=== PATIENT | male | born 1970 | race Caucasian/White ===

== ENCOUNTER 2022-02-02 13:23 | Outpatient (REF) | payer OTHER, SELFPAY ==
--- NOTE | 2022-02-02 13:39 | ECG_ITS ---
Test Reason : F31.63 Blood Pressure : / mmHG Vent. Rate : 067 BPM Atrial Rate : 067 BPM P-R Int : 158 ms QRS Dur : 106 ms QT Int : 400 ms P-R-T Axes : 063 -13 009 degrees QTc Int : 422 ms Normal sinus rhythm RSR' or QR pattern in V1 suggests right ventricular conduction delay Low voltage QRS Borderline ECG When compared with ECG of 07-OCT-2014 13:52, No significant change was found Referred By: Aaron Chen Electronically Signed By:MANJEET BEST MD
[2022-02-02 14:03] LABS: MANUAL DIFF FLAG NO
[2022-02-02 14:05] LABS: Basophils Absolute Auto 0.1 X10*3/uL (0.0-0.2); Basophils Percent Auto 0.6 % (0-2); Eosinophils Absolute Auto 0.1 X10*3/uL (0.0-0.4); Eosinophils Percent Auto 1.6 % (0-4); Hematocrit 41.2 % (42.0-52.0); Hemoglobin 14.4 g/dl (14.0-18.0); Imm Gran Abs Auto 0.05 X10*3/uL (0.00-0.03); Imm Gran Pct Auto 0.6 % (0.0-0.4); Lymphocytes Absolute Auto 1.9 X10*3/uL (1.2-4.9); Lymphocytes Percent Auto 23.2 % (20-40); Mean Corpuscular Volume 82.9 fL (80.0-98.0); Mean Platelet Volume 10.6 fL (9.4-12.4); Monocytes Absolute Auto 0.6 X10*3/uL (0.1-1.2); Monocytes Percent Auto 7.9 % (2-11); Neutrophils Absolute Auto 5.4 x10*3/uL (2.0-8.3); Neutrophils Percent Auto 66.1 % (45-73); Platelet Count 227 X10*3/uL (160-400); Red Blood Count 4.97 X10*6/uL (4.60-5.80); Red Cell Distribution Width 12.7 % (11.0-16.0); White Blood Count 8.1 X10*3/uL (4.8-10.8)
[2022-02-02 14:35] LABS: Alanine Aminotransferase 18 U/L (0-40); Albumin Level 4.4 g/dL (3.5-5.0); Alkaline Phosphatase 64 U/L (39-117); Anion Gap 16 (12-20); Aspartate Amino Transferase 15 U/L (5-37); Bilirubin Total 0.5 mg/dL (0.0-1.0); Blood Urea Nitrogen 19 mg/dL (9-16); Calcium 9.6 mg/dL (8.4-10.2); Carbon Dioxide 24 mmol/L (22-29); Chloride 103 mmol/L (96-108); Estimated Glomerular Filt Rate > 60; Glucose Random 224 mg/dL (60-115); Potassium 4.1 mmol/L (3.3-5.1); Sodium 139 mmol/L (135-145); Total Protein 7.2 g/dL (6.5-8.0)
[2022-02-02 14:49] LABS: Estimated Average Glucose 166 mg/dL; Hemoglobin A1c % 7.4 %
[2022-02-02 15:26] LABS: Vitamin B12 549 pg/mL (200-900)
== END 2022-02-02 13:24 | disposition home or self-care (01) ==
LOC: HO.LAB 13:23
PROVIDERS: PCP Family Medicine; Visit Provider Psychiatry & Neurology Psychiatry
DX: F31.63 Bipolar disorder, current episode mixed, severe, without psychotic features (principal); I10 Essential (primary) hypertension; E11.9 Type 2 diabetes mellitus without complications
CPT/HCPCS: 36415; 80053; 82607; 82746; 83036; 84443; 85025; 93005; 99202

== ENCOUNTER 2022-02-16 05:58 | Day surgery (SDC) | payer OTHER, SELFPAY ==
[2022-02-16 06:42] LABS: COVID-19 Test Negative (Negative); IDNOW Serial# 9DB6401D
[2022-02-16 06:51] VITALS: BP 143/73; PULSE 69; RESP 20; TEMP 36.8; O2SAT 96; BMI 44.4
--- NOTE | 2022-02-16 07:35 | HO.ANESPROP2 ---
[facility] Active Problems Active Problems: All Active Problems (Updated 02/04/22 @ 21:42 by Aaron Chen MD) Bipolar disorder with severe depression (Acute) Hypertension (Acute) Diabetes type 2, uncontrolled (Acute) Bipolar affective, mixed, severe (Acute) Past Medical History Medical History Bipolar affective, mixed, severe Hypertension Functional capacity: independent ambulation Surgical History History of Problems with Anesthesia: No Social History Social History Advance Directives: No Advance Directives Information Provided: Yes Meds Allergies Allergy/AdvReac Type Severity Reaction Status Date / Time amoxicillin [AMOXICILLIN] Allergy Unknown RASH Unverified 11/26/19 18:03 clindamycin [CLINDAMYCIN] Allergy Unknown VIOLENT Unverified 11/26/19 18:03 HEARTBURN Exam Exam Date and Time: February 16, 2022 0735 Height,Weight and Vital Signs: Height 5 ft 8 in Weight 132.449 kg Last Vital Signs Temp 98.3 F 02/16/22 06:51 Pulse 69 02/16/22 06:51 Resp 20 02/16/22 06:51 BP 143/73 H 02/16/22 06:51 Pulse Ox 96 02/16/22 06:51 O2 Del Method 02/16/22 06:51 Pertinent Lab Results Pertinent Lab Results: Laboratory Tests 02/16/22 06:13 COVID-19 (GENESIS) Negative COVID-19 Clin Com See Note Airway Mallampati Class: III TM Dist: >3cm Neck ROM: Full Heart: RRR Lungs: CTA Assessment and Plan Final Anesthetic Review History of Problems with Anesthesia: No ASA Class: III Final Preanesthetic Review: Meds/Allgs Chart Reviewed, Consent Obtained/Reviewed and Anes Risks/Benef Reviewed Patient Risk: Intermediate Procedure Risk: Low Anesthetic Plan Anesthetic Plan: GA Disposition: Standard PACU
--- NOTE | 2022-02-16 08:26 | MHC.SHP ---
Pre-Procedural Eval Section A Date of Service: 02/16/22 The patient is an INPATIENT: No Changes since office visit: Yes Patient answered all questions; No Cold of Flu in the past 2 weeks, No New Medical Problems and No Changes in Medication The History & Physical has been completed within 30 days and I have reviewed it.: Yes Section B Chief Complaint: Major depressive disorder, recurrent, severe with Allergies: Allergies Allergy/AdvReac Type Severity Reaction Status Date / Time amoxicillin [AMOXICILLIN] Allergy Unknown RASH Unverified 11/26/19 18:03 clindamycin [CLINDAMYCIN] Allergy Unknown VIOLENT Unverified 11/26/19 18:03 HEARTBURN Plan I have reviewed the history and physical and performed a pertinent physical examination on my patient. No changes have occurred unless specified.
[2022-02-16 08:29] VITALS: BP 115/75; PULSE 82; RESP 12; TEMP 36.9; O2SAT 95
[2022-02-16 08:34] VITALS: BP 155/93; PULSE 90; RESP 20; O2SAT 95
[2022-02-16 08:39] VITALS: PULSE 100; RESP 20
[2022-02-16 08:54] VITALS: PULSE 102; RESP 20
--- NOTE | 2022-02-16 08:56 | HO.POSTANES ---
Post Anesthesia Evaluation Post Anesthesia Evaluation Vital Signs: Vital Signs Temp Pulse Resp BP Pulse Ox O2 Del Method O2 Flow Rate 02/16/22 08:39 100 20 02/16/22 08:34 90 20 155/93 H 95 Nasal Cannula with ETCO2 2 02/16/22 08:29 98.4 F 82 12 115/75 95 Nasal Cannula with ETCO2 2 02/16/22 06:51 98.3 F 69 20 143/73 H 96 Room Air Anesthesia: General LMA Mental Status: Awake Pain Control: Satisfactory Nausea/Vomiting: None Hydration: Adequate Anesthesia-Related Issues: No Anes. Related Issues
[2022-02-16] MEDS: LORazepam 1 MG TABLET PO (09:05)
[2022-02-16 09:08] VITALS: BP 142/80; PULSE 90; RESP 20; O2SAT 95
--- NOTE | 2022-02-16 20:08 | HO.ECTPROC ---
ECT Procedure Note Diagnosis/Treatment Date of Service: 02/16/22 Diagnosis: Major Depressive Disorder Current Treatment Number: 1 Treatment: Series Interval Clinical Notes: pt depressed anxious irritable informed consent obtained Time: Total time managing care of this patient today ____ minutes. ECT Settings Device: THYMATRON DGx Electrode Placement: Right Unilateral Program/Pulse Width: 0.50 Energy Percent: 100 Seizure Duration By EEG (in seconds): 65 Medications Administration General Anesthetic: Etomidate (16) Muscle Relaxant: Succinylcholine (120) and Rocuronium (5mg ) Ancillary Medications Anti-emetics: Zofran - Pre ECT Miscillaneous Medications: Propofol (30 mg ) Airway Management Airway Management: LMA Treatment Recommendations No Changes Recommended: No change Notes: ect number 1 hx muscle pain with succinyl cholin=e given ativan 1 mg post anxiety agitation
== END 2022-02-16 09:34 | disposition home or self-care (01) ==
PROVIDERS: PCP Family Medicine; Visit Provider Psychiatry & Neurology Psychiatry
PROC: (CPT 90870; principal; 2022-02-16 07:00)
DX: F31.4 Bipolar disorder, current episode depressed, severe, without psychotic features (principal); E11.9 Type 2 diabetes mellitus without complications; I10 Essential (primary) hypertension; Z88.0 Allergy status to penicillin; Z88.1 Allergy status to other antibiotic agents; Z20.822 Contact with and (suspected) exposure to COVID-19
CPT/HCPCS: 87635; 90870; J0330; J2405

== ENCOUNTER 2022-02-19 06:01 | Day surgery (SDC) | payer OTHER, SELFPAY ==
[2022-02-19 06:44] VITALS: BP 148/65; PULSE 73; RESP 20; TEMP 36.2; O2SAT 97; BMI 44.4
[2022-02-19 06:47] LABS: COVID-19 Test Negative (Negative); IDNOW Serial# BCCEAD1C
--- NOTE | 2022-02-19 07:56 | HO.ECTPROC ---
ECT Procedure Note Diagnosis/Treatment Date of Service: 02/19/22 Diagnosis: Bipolar disorder Previous ECT Date: 02/16/22 Current Treatment Number: 2 Treatment: Series Interval Clinical Notes: Still dysphoric,, headaches after first ECT. Complained of headaches with the first ECT. Last night he took Ativan 1 mg po qhs. Anxious before the procedure but easily redirected. Time: Total time managing care of this patient today __20__ minutes. ECT Settings Device: THYMATRON DGx Electrode Placement: Right Unilateral Program/Pulse Width: 0.50 Energy Percent: 100 Seizure Duration By EEG (in seconds): 41 By Motor Observation (in seconds): 41 Medications Administration General Anesthetic: Etomidate (16) Muscle Relaxant: Succinylcholine (120) and Rocuronium (5) Ancillary Medications Anti-emetics: Zofran - Pre ECT Airway Management Airway Management: Bag Mask Ventilation Treatment Recommendations No Changes Recommended: No change Notes: Extremely anxious at baseline, no use of Flumazenil before the procedure, strong muscular reading before ECT. Pt Tolerated Procedure w/o Issue: Yes
[2022-02-19 08:26] VITALS: PULSE 98; RESP 15; TEMP 36.6; O2SAT 94
[2022-02-19 08:40] VITALS: BP 152/53; PULSE 103; RESP 20; O2SAT 92
[2022-02-19 08:56] VITALS: BP 178/91; PULSE 101; RESP 18; O2SAT 92
--- NOTE | 2022-02-19 08:56 | P.CONAN_ITS ---
[facility] Active Problems Active Problems: All Active Problems (Updated 02/16/22 @ 13:57 by Yessica Negron RN) Diabetes type 2, uncontrolled (Acute) Bipolar disorder with severe depression (Acute) Hypertension (Acute) Bipolar affective, mixed, severe (Acute) Past Medical History Medical History (Updated 02/16/22 @ 13:57 by Yessica Negron RN) Bipolar affective, mixed, severe Carpal tunnel syndrome Chronic serous OM (otitis media) Diabetic renal disease GERD (gastroesophageal reflux disease) Hyperhidrosis Hypersomnia with sleep apnea Hypertension Lyme disease Migraine without aura Morbid obesity Panic disorder without agoraphobia Recurrent major depressive episodes, moderate Sciatica Temporomandibular joint disorder Family History Family history of problems with anesthesia: No Surgical History History of Problems with Anesthesia: No Social History Social History Patient Tobacco Use Status: Tobacco use Unknown Advance Directives: No Advance Directives Information Provided: Yes Meds Allergies Allergy/AdvReac Type Severity Reaction Status Date / Time amoxicillin [AMOXICILLIN] Allergy Unknown RASH Unverified 11/26/19 18:03 clindamycin [CLINDAMYCIN] Allergy Unknown VIOLENT Unverified 11/26/19 18:03 HEARTBURN clavulanic acid Allergy Rash Verified 02/16/22 13:52 [From Augmentin] divalproex sodium Allergy Rash Verified 02/16/22 13:52 [From Depakote] duloxetine Allergy light Verified 02/16/22 13:52 headed lurasidone [From Latuda] Allergy Mod-severe Verified 02/16/22 13:52 blood sugar spikes metformin Allergy headache, Verified 02/16/22 13:52 diarhhea metoclopramide AdvReac Nausea Verified 02/16/22 13:52 risperidone AdvReac groggy, Verified 02/16/22 13:52 unable to function simvastatin AdvReac Nausea and Verified 02/16/22 13:52 Vomiting Home Medications Medication Instructions Recorded Confirmed Last Taken Type fluticasone propionate 50 2 spray intranasal DAILY 02/16/22 02/16/22 Unknown History mcg/actuation nasal spray,suspension glipizide 10 mg tablet, extended 1 tab PO BID 02/16/22 02/16/22 Unknown History release 24 hr ketoconazole 2 % shampoo topical 02/16/22 Unknown History lorazepam 1 mg tablet 1 tab PO BID PRN Anxiety 02/16/22 02/16/22 Unknown History losartan 100 1 tab PO QAM 02/16/22 02/16/22 Unknown History mg-hydrochlorothiazide 12.5 mg tablet trazodone 100 mg tablet 1 tab PO BEDTIME 02/16/22 02/16/22 Unknown History Exam Exam Date and Time: February 19, 2022 0856 Height,Weight and Vital Signs: Height 5 ft 8 in Weight 132.449 kg Last Vital Signs Temp 98 F 02/19/22 08:26 Pulse 103 H 02/19/22 08:40 Resp 20 02/19/22 08:40 BP 152/53 H 02/19/22 08:40 Pulse Ox 92 02/19/22 08:40 O2 Del Method 02/19/22 08:40 O2 Flow Rate 2 02/19/22 08:26 Pertinent Lab Results Pertinent Lab Results: Laboratory Tests 02/19/22 06:20 COVID-19 (GENESIS) Negative COVID-19 Clin Com See Note Airway Mallampati Class: III TM Dist: >3cm Neck ROM: Full Assessment and Plan Assessment Anesthesia Assessment: Anesthesia Plan Discussed and Chart Reviewed Final Anesthetic Review Family History of Problems with Anesthesia: No History of Problems with Anesthesia: No NPO: Yes ASA Class: III Final Preanesthetic Review: No Changes in Pt Med Stat, Meds/Allgs Chart Reviewed, Consent Obtained/Reviewed and Anes Risks/Benef Reviewed Patient Risk: Intermediate Procedure Risk: Low Anesthetic Plan Anesthetic Plan: GA Disposition: Standard PACU
[2022-02-19 09:11] VITALS: BP 162/96; PULSE 94; RESP 20; TEMP 36.6; O2SAT 93
== END 2022-02-19 09:41 | disposition home or self-care (01) ==
PROVIDERS: PCP Family Medicine; Visit Provider Psychiatry & Neurology Psychiatry
PROC: (CPT 90870; principal; 2022-02-19 07:00)
DX: F31.4 Bipolar disorder, current episode depressed, severe, without psychotic features (principal); E11.9 Type 2 diabetes mellitus without complications; I10 Essential (primary) hypertension; Z79.84 Long term (current) use of oral hypoglycemic drugs; Z79.899 Other long term (current) drug therapy; Z88.0 Allergy status to penicillin; Z88.1 Allergy status to other antibiotic agents; Z88.8 Allergy status to other drugs, medicaments and biological substances; Z20.822 Contact with and (suspected) exposure to COVID-19
CPT/HCPCS: 87635; 90870; J0330; J2405

== ENCOUNTER 2022-02-21 05:56 | Day surgery (SDC) | payer OTHER, SELFPAY ==
[2022-02-21] VITALS (9 sets, daily range): BP systolic 129–159; BP diastolic 71–83; PULSE 64–94; RESP 12–20; TEMP 36.2–36.8; O2SAT 96–97; BMI 44.4
[2022-02-21 06:33] LABS: COVID-19 Test Negative (Negative); IDNOW Serial# 16C4AD1C
--- NOTE | 2022-02-21 07:08 | MHC.SHP ---
Pre-Procedural Eval Section A Date of Service: 02/21/22 The patient is an INPATIENT: No Changes since office visit: Yes Patient answered all questions; No Cold of Flu in the past 2 weeks, No New Medical Problems and No Changes in Medication The History & Physical has been completed within 30 days and I have reviewed it.: Yes Section B Chief Complaint: depression Allergies: Allergies Allergy/AdvReac Type Severity Reaction Status Date / Time amoxicillin [AMOXICILLIN] Allergy Unknown RASH Unverified 11/26/19 18:03 clindamycin [CLINDAMYCIN] Allergy Unknown VIOLENT Unverified 11/26/19 18:03 HEARTBURN clavulanic acid Allergy Rash Verified 02/16/22 13:52 [From Augmentin] divalproex sodium Allergy Rash Verified 02/16/22 13:52 [From Depakote] duloxetine Allergy light Verified 02/16/22 13:52 headed lurasidone [From Latuda] Allergy Mod-severe Verified 02/16/22 13:52 blood sugar spikes metformin Allergy headache, Verified 02/16/22 13:52 diarhhea metoclopramide AdvReac Nausea Verified 02/16/22 13:52 risperidone AdvReac groggy, Verified 02/16/22 13:52 unable to function simvastatin AdvReac Nausea and Verified 02/16/22 13:52 Vomiting Plan I have reviewed the history and physical and performed a pertinent physical examination on my patient. No changes have occurred unless specified. Time Spent With Patient Time: Total time managing care of this patient today ____ minutes.
--- NOTE | 2022-02-21 07:27 | HO.ECTPROC ---
ECT Procedure Note Diagnosis/Treatment Date of Service: 02/21/22 Diagnosis: Major Depressive Disorder Previous ECT Date: 02/19/22 Current Treatment Number: 3 Treatment: Series Interval Clinical Notes: pt remains depressed irritable no change to this point Time: Total time managing care of this patient today ____ minutes. ECT Settings Device: THYMATRON DGx Electrode Placement: Right Unilateral Program/Pulse Width: 0.50 Energy Percent: 100 Seizure Duration By EEG (in seconds): 61 Medications Administration General Anesthetic: Etomidate (16) Muscle Relaxant: Succinylcholine (120) and Rocuronium (5) Ancillary Medications Analgesics: Torodol - Pre ECT (30) Anti-emetics: Zofran - Pre ECT Miscillaneous Medications: Propofol (30) and Midazolam (2) Airway Management Airway Management: LMA Treatment Recommendations No Changes Recommended: No change Notes: post op some agitation
--- NOTE | 2022-02-21 08:16 | P.CONAN_ITS ---
[facility] Active Problems Active Problems: All Active Problems (Updated 02/16/22 @ 13:57 by Yessica Negron RN) Diabetes type 2, uncontrolled (Acute) Bipolar disorder with severe depression (Acute) Hypertension (Acute) Bipolar affective, mixed, severe (Acute) Past Medical History Medical History Bipolar affective, mixed, severe Carpal tunnel syndrome Chronic serous OM (otitis media) Diabetic renal disease GERD (gastroesophageal reflux disease) Hyperhidrosis Hypersomnia with sleep apnea Hypertension Lyme disease Migraine without aura Morbid obesity Panic disorder without agoraphobia Recurrent major depressive episodes, moderate Sciatica Temporomandibular joint disorder Functional capacity: independent ambulation Family History Family history of problems with anesthesia: No Surgical History History of Problems with Anesthesia: No Social History Social History Patient Tobacco Use Status: Tobacco use Unknown Advance Directives: No Advance Directives Information Provided: Yes Meds Allergies Allergy/AdvReac Type Severity Reaction Status Date / Time amoxicillin [AMOXICILLIN] Allergy Unknown RASH Unverified 11/26/19 18:03 clindamycin [CLINDAMYCIN] Allergy Unknown VIOLENT Unverified 11/26/19 18:03 HEARTBURN clavulanic acid Allergy Rash Verified 02/16/22 13:52 [From Augmentin] divalproex sodium Allergy Rash Verified 02/16/22 13:52 [From Depakote] duloxetine Allergy light Verified 02/16/22 13:52 headed lurasidone [From Latuda] Allergy Mod-severe Verified 02/16/22 13:52 blood sugar spikes metformin Allergy headache, Verified 02/16/22 13:52 diarhhea metoclopramide AdvReac Nausea Verified 02/16/22 13:52 risperidone AdvReac groggy, Verified 02/16/22 13:52 unable to function simvastatin AdvReac Nausea and Verified 02/16/22 13:52 Vomiting Active Medications: Current Medications Fentanyl (Fentanyl Citrate/Pf 100 Mcg/2 Ml Vial) 50 mcg IVPUSH Q5M PRN; Protocol PRN Reason: Pain, Severe (Pain Scale 7-10) Home Medications Medication Instructions Recorded Confirmed Last Taken Type fluticasone propionate 50 2 spray intranasal DAILY 02/16/22 02/16/22 Unknown History mcg/actuation nasal spray,suspension glipizide 10 mg tablet, extended 1 tab PO BID 02/16/22 02/16/22 Unknown History release 24 hr ketoconazole 2 % shampoo topical 02/16/22 Unknown History lorazepam 1 mg tablet 1 tab PO BID PRN Anxiety 02/16/22 02/16/22 Unknown History losartan 100 1 tab PO QAM 02/16/22 02/16/22 Unknown History mg-hydrochlorothiazide 12.5 mg tablet trazodone 100 mg tablet 1 tab PO BEDTIME 02/16/22 02/16/22 Unknown History Exam Exam Date and Time: February 21, 2022 0816 Height,Weight and Vital Signs: Height 5 ft 8 in Weight 132.449 kg Last Vital Signs Temp 98.3 F 02/21/22 08:04 Pulse 94 02/21/22 07:44 Resp 16 02/21/22 08:04 BP 130/71 02/21/22 08:04 Pulse Ox 97 02/21/22 07:34 O2 Del Method 02/21/22 08:04 O2 Flow Rate 6 02/21/22 07:34 Pertinent Lab Results Pertinent Lab Results: Laboratory Tests 02/21/22 06:14 COVID-19 (GENESIS) Negative COVID-19 Clin Com See Note Airway Mallampati Class: III TM Dist: >3cm Neck ROM: Full Heart: RRR Lungs: CTA Assessment and Plan Final Anesthetic Review Family History of Problems with Anesthesia: No History of Problems with Anesthesia: No ASA Class: III Final Preanesthetic Review: No Changes in Pt Med Stat, Meds/Allgs Chart Reviewed, Consent Obtained/Reviewed and Anes Risks/Benef Reviewed Patient Risk: Low Procedure Risk: Low Anesthetic Plan Anesthetic Plan: GA Disposition: Standard PACU
--- NOTE | 2022-02-21 08:18 | HO.POSTANES ---
Post Anesthesia Evaluation Post Anesthesia Evaluation Vital Signs: Vital Signs Temp Pulse Resp BP Pulse Ox O2 Del Method O2 Flow Rate 02/21/22 08:04 98.3 F 16 130/71 Room Air 02/21/22 07:57 14 142/73 H Room Air 02/21/22 07:49 18 02/21/22 07:44 94 20 02/21/22 07:39 94 20 02/21/22 07:34 97.2 F 94 20 129/80 97 Nasal Cannula with ETCO2 6 02/21/22 06:30 97.6 F 64 12 141/71 H 96 Room Air Anesthesia: General Mental Status: Awake Pain Control: Satisfactory Nausea/Vomiting: None Hydration: Adequate Anesthesia-Related Issues: No Anes. Related Issues
== END 2022-02-21 09:19 | disposition home or self-care (01) ==
PROVIDERS: PCP Family Medicine; Visit Provider Psychiatry & Neurology Psychiatry
PROC: (CPT 90870; principal; 2022-02-21 07:00)
DX: F33.2 Major depressive disorder, recurrent severe without psychotic features (principal); E11.21 Type 2 diabetes mellitus with diabetic nephropathy; I10 Essential (primary) hypertension; A69.20 Lyme disease, unspecified; Z79.4 Long term (current) use of insulin; Z79.899 Other long term (current) drug therapy; Z88.0 Allergy status to penicillin; Z88.1 Allergy status to other antibiotic agents; Z88.8 Allergy status to other drugs, medicaments and biological substances; Z20.822 Contact with and (suspected) exposure to COVID-19
CPT/HCPCS: 87635; 90870; J0330; J1885; J2250; J2405

== ENCOUNTER 2022-02-23 07:23 | Day surgery (SDC) | payer OTHER, SELFPAY ==
--- NOTE | 2022-02-23 07:41 | P.CONAN_ITS ---
[facility] Active Problems Active Problems: All Active Problems (Updated 02/16/22 @ 13:57 by Yessica Negron RN) Diabetes type 2, uncontrolled (Acute) Bipolar disorder with severe depression (Acute) Hypertension (Acute) Bipolar affective, mixed, severe (Acute) Past Medical History Medical History Bipolar affective, mixed, severe Carpal tunnel syndrome Chronic serous OM (otitis media) Diabetic renal disease GERD (gastroesophageal reflux disease) Hyperhidrosis Hypersomnia with sleep apnea Hypertension Lyme disease Migraine without aura Morbid obesity Panic disorder without agoraphobia Recurrent major depressive episodes, moderate Sciatica Temporomandibular joint disorder Family History Family history of problems with anesthesia: No Surgical History History of Problems with Anesthesia: No Social History Social History Patient Tobacco Use Status: Tobacco use Unknown Advance Directives: No Advance Directives Information Provided: Yes Meds Allergies Allergy/AdvReac Type Severity Reaction Status Date / Time amoxicillin [AMOXICILLIN] Allergy Unknown RASH Unverified 11/26/19 18:03 clindamycin [CLINDAMYCIN] Allergy Unknown VIOLENT Unverified 11/26/19 18:03 HEARTBURN clavulanic acid Allergy Rash Verified 02/16/22 13:52 [From Augmentin] divalproex sodium Allergy Rash Verified 02/16/22 13:52 [From Depakote] duloxetine Allergy light Verified 02/16/22 13:52 headed lurasidone [From Latuda] Allergy Mod-severe Verified 02/16/22 13:52 blood sugar spikes metformin Allergy headache, Verified 02/16/22 13:52 diarhhea metoclopramide AdvReac Nausea Verified 02/16/22 13:52 risperidone AdvReac groggy, Verified 02/16/22 13:52 unable to function simvastatin AdvReac Nausea and Verified 02/16/22 13:52 Vomiting Home Medications Medication Instructions Recorded Confirmed Last Taken Type fluticasone propionate 50 2 spray intranasal DAILY 02/16/22 02/16/22 Unknown History mcg/actuation nasal spray,suspension glipizide 10 mg tablet, extended 1 tab PO BID 02/16/22 02/16/22 Unknown History release 24 hr ketoconazole 2 % shampoo topical 02/16/22 Unknown History lorazepam 1 mg tablet 1 tab PO BID PRN Anxiety 02/16/22 02/16/22 Unknown History losartan 100 1 tab PO QAM 02/16/22 02/16/22 Unknown History mg-hydrochlorothiazide 12.5 mg tablet trazodone 100 mg tablet 1 tab PO BEDTIME 02/16/22 02/16/22 Unknown History Exam Exam Date and Time: February 23, 2022 0741 Airway Mallampati Class: III (Missing a lot, unknown specific amount) TM Dist: >3cm Neck ROM: Full Heart: rrr Lungs: cta Assessment and Plan Assessment Anesthesia Assessment: Anesthesia Plan Discussed and Chart Reviewed Final Anesthetic Review Family History of Problems with Anesthesia: No History of Problems with Anesthesia: No NPO: Yes ASA Class: III Final Preanesthetic Review: No Changes in Pt Med Stat, Meds/Allgs Chart Reviewed and Consent Obtained/Reviewed Patient Risk: Intermediate Procedure Risk: Intermediate Anesthetic Plan Anesthetic Plan: GA Disposition: Standard PACU
[2022-02-23 07:45] VITALS: BP 161/77; PULSE 67; RESP 19; TEMP 36.4; O2SAT 98; BMI 29.6
--- NOTE | 2022-02-23 07:52 | MHC.SHP ---
Pre-Procedural Eval Section A Date of Service: 02/23/22 Changes since office visit: Yes Changes in Medication; No Cold of Flu in the past 2 weeks, No New Medical Problems and No Patient answered all questions The History & Physical has been completed within 30 days and I have reviewed it.: Yes Section B Chief Complaint: depression Allergies: Allergies Allergy/AdvReac Type Severity Reaction Status Date / Time amoxicillin [AMOXICILLIN] Allergy Unknown RASH Unverified 11/26/19 18:03 clindamycin [CLINDAMYCIN] Allergy Unknown VIOLENT Unverified 11/26/19 18:03 HEARTBURN clavulanic acid Allergy Rash Verified 02/16/22 13:52 [From Augmentin] divalproex sodium Allergy Rash Verified 02/16/22 13:52 [From Depakote] duloxetine Allergy light Verified 02/16/22 13:52 headed lurasidone [From Latuda] Allergy Mod-severe Verified 02/16/22 13:52 blood sugar spikes metformin Allergy headache, Verified 02/16/22 13:52 diarhhea metoclopramide AdvReac Nausea Verified 02/16/22 13:52 risperidone AdvReac groggy, Verified 02/16/22 13:52 unable to function simvastatin AdvReac Nausea and Verified 02/16/22 13:52 Vomiting Plan I have reviewed the history and physical and performed a pertinent physical examination on my patient. No changes have occurred unless specified. Time Spent With Patient Time: Total time managing care of this patient today ____ minutes.
--- NOTE | 2022-02-23 07:54 | HO.ECTPROC ---
ECT Procedure Note Diagnosis/Treatment Date of Service: 02/23/22 Diagnosis: Major Depressive Disorder Previous ECT Date: 02/21/22 Current Treatment Number: 4 Treatment: Series Interval Clinical Notes: pt remains depressed irritable no change to this point ? less agitation Time: Total time managing care of this patient today ____ minutes. ECT Settings Device: THYMATRON DGx Electrode Placement: Bifrontal Program/Pulse Width: 0.50 Energy Percent: 100 Seizure Duration By EEG (in seconds): 67 Medications Administration General Anesthetic: Etomidate (16) Muscle Relaxant: Succinylcholine (120) and Rocuronium (5) Ancillary Medications Analgesics: Torodol - Pre ECT (30) Anti-emetics: Zofran - Pre ECT Miscillaneous Medications: Propofol (30) and Midazolam (2) Airway Management Airway Management: LMA Treatment Recommendations No Changes Recommended: No change Notes: post op doing better Pt Tolerated Procedure w/o Issue: Yes
[2022-02-23 08:15] LABS: COVID-19 Test Negative (Negative); IDNOW Serial# BCCEAD1C
[2022-02-23 08:53] VITALS: BP 165/60; PULSE 107; RESP 19; TEMP 36.2; O2SAT 97
[2022-02-23 09:08] VITALS: BP 155/77; PULSE 96; RESP 19; O2SAT 97
[2022-02-23] MEDS: Acetaminophen 325 MG TABLET 650 MG PO (09:21)
[2022-02-23 09:23] VITALS: BP 149/67; PULSE 81; RESP 18; TEMP 36.9; O2SAT 97
== END 2022-02-23 09:50 | disposition home or self-care (01) ==
PROVIDERS: PCP Family Medicine; Visit Provider Psychiatry & Neurology Psychiatry
PROC: (CPT 90870; principal; 2022-02-23 08:00)
DX: F33.1 Major depressive disorder, recurrent, moderate (principal); F41.0 Panic disorder [episodic paroxysmal anxiety]; E11.22 Type 2 diabetes mellitus with diabetic chronic kidney disease; N18.9 Chronic kidney disease, unspecified; I10 Essential (primary) hypertension; A69.20 Lyme disease, unspecified; G47.10 Hypersomnia, unspecified; Z79.84 Long term (current) use of oral hypoglycemic drugs; Z79.899 Other long term (current) drug therapy; Z88.1 Allergy status to other antibiotic agents; Z88.8 Allergy status to other drugs, medicaments and biological substances; Z20.822 Contact with and (suspected) exposure to COVID-19
CPT/HCPCS: 87635; 90870; J0330; J1885; J2250; J2405

== ENCOUNTER 2022-02-26 05:58 | Day surgery (SDC) | payer OTHER, SELFPAY ==
[2022-02-26] VITALS (7 sets, daily range): BP systolic 132–162; BP diastolic 59–100; PULSE 79–96; RESP 14–20; TEMP 36.2–37; O2SAT 93–96; BMI 43.3
[2022-02-26 06:33] LABS: COVID-19 Test Negative (Negative); IDNOW Serial# 16C4AD1C
--- NOTE | 2022-02-26 06:41 | HO.ANESPROP2 ---
[facility] Active Problems Active Problems: All Active Problems (Updated 02/16/22 @ 13:57 by Yessica Negron RN) Diabetes type 2, uncontrolled (Acute) Bipolar disorder with severe depression (Acute) Hypertension (Acute) Bipolar affective, mixed, severe (Acute) Past Medical History Medical History Bipolar affective, mixed, severe Carpal tunnel syndrome Chronic serous OM (otitis media) Diabetic renal disease GERD (gastroesophageal reflux disease) Hyperhidrosis Hypersomnia with sleep apnea Hypertension Lyme disease Migraine without aura Morbid obesity Panic disorder without agoraphobia Recurrent major depressive episodes, moderate Sciatica Temporomandibular joint disorder Family History Family history of problems with anesthesia: No Surgical History History of Problems with Anesthesia: No Social History Social History Patient Tobacco Use Status: Tobacco use Unknown Advance Directives: No Advance Directives Information Provided: Yes Meds Allergies Allergy/AdvReac Type Severity Reaction Status Date / Time amoxicillin [AMOXICILLIN] Allergy Unknown RASH Unverified 11/26/19 18:03 clindamycin [CLINDAMYCIN] Allergy Unknown VIOLENT Unverified 11/26/19 18:03 HEARTBURN clavulanic acid Allergy Rash Verified 02/16/22 13:52 [From Augmentin] divalproex sodium Allergy Rash Verified 02/16/22 13:52 [From Depakote] duloxetine Allergy light Verified 02/16/22 13:52 headed lurasidone [From Latuda] Allergy Mod-severe Verified 02/16/22 13:52 blood sugar spikes metformin Allergy headache, Verified 02/16/22 13:52 diarhhea metoclopramide AdvReac Nausea Verified 02/16/22 13:52 risperidone AdvReac groggy, Verified 02/16/22 13:52 unable to function simvastatin AdvReac Nausea and Verified 02/16/22 13:52 Vomiting Home Medications Medication Instructions Recorded Confirmed Last Taken Type fluticasone propionate 50 2 spray intranasal DAILY 02/16/22 02/16/22 Unknown History mcg/actuation nasal spray,suspension glipizide 10 mg tablet, extended 1 tab PO BID 02/16/22 02/16/22 Unknown History release 24 hr ketoconazole 2 % shampoo topical 02/16/22 Unknown History lorazepam 1 mg tablet 1 tab PO BID PRN Anxiety 02/16/22 02/16/22 Unknown History losartan 100 1 tab PO QAM 02/16/22 02/16/22 Unknown History mg-hydrochlorothiazide 12.5 mg tablet trazodone 100 mg tablet 1 tab PO BEDTIME 02/16/22 02/16/22 Unknown History Exam Exam Date and Time: February 26, 2022 0641 Pertinent Lab Results Pertinent Lab Results: Laboratory Tests 02/26/22 06:12 COVID-19 (GENESIS) Negative COVID-19 Clin Com See Note Airway Mallampati Class: III TM Dist: >3cm Neck ROM: Full Heart: rrr Lungs: cta Assessment and Plan Assessment Anesthesia Assessment: Anesthesia Plan Discussed and Chart Reviewed Final Anesthetic Review Family History of Problems with Anesthesia: No History of Problems with Anesthesia: No NPO: Yes ASA Class: III Final Preanesthetic Review: No Changes in Pt Med Stat, Meds/Allgs Chart Reviewed and Consent Obtained/Reviewed Patient Risk: Intermediate Procedure Risk: Intermediate Anesthetic Plan Anesthetic Plan: GA Disposition: Standard PACU
--- NOTE | 2022-02-26 07:07 | MHC.SHP ---
Pre-Procedural Eval Section A Date of Service: 02/26/22 The patient is an INPATIENT: No Changes since office visit: Yes Patient answered all questions; No Cold of Flu in the past 2 weeks, No New Medical Problems and No Changes in Medication The History & Physical has been completed within 30 days and I have reviewed it.: Yes Section B Chief Complaint: depression Allergies: Allergies Allergy/AdvReac Type Severity Reaction Status Date / Time amoxicillin [AMOXICILLIN] Allergy Unknown RASH Unverified 11/26/19 18:03 clindamycin [CLINDAMYCIN] Allergy Unknown VIOLENT Unverified 11/26/19 18:03 HEARTBURN clavulanic acid Allergy Rash Verified 02/16/22 13:52 [From Augmentin] divalproex sodium Allergy Rash Verified 02/16/22 13:52 [From Depakote] duloxetine Allergy light Verified 02/16/22 13:52 headed lurasidone [From Latuda] Allergy Mod-severe Verified 02/16/22 13:52 blood sugar spikes metformin Allergy headache, Verified 02/16/22 13:52 diarhhea metoclopramide AdvReac Nausea Verified 02/16/22 13:52 risperidone AdvReac groggy, Verified 02/16/22 13:52 unable to function simvastatin AdvReac Nausea and Verified 02/16/22 13:52 Vomiting Plan I have reviewed the history and physical and performed a pertinent physical examination on my patient. No changes have occurred unless specified. Time Spent With Patient Time: Total time managing care of this patient today ____ minutes.
--- NOTE | 2022-02-26 07:31 | HO.ECTPROC ---
ECT Procedure Note Diagnosis/Treatment Date of Service: 02/26/22 Previous ECT Date: 02/23/22 Current Treatment Number: 5 Treatment: Series Interval Clinical Notes: pt perhaps less agitated unclear mood changes did not like how he felt after bf tx Time: Total time managing care of this patient today ____ minutes. ECT Settings Device: THYMATRON DGx Electrode Placement: Right Unilateral Program/Pulse Width: 0.50 Energy Percent: 100 Seizure Duration By EEG (in seconds): 64 Medications Administration General Anesthetic: Etomidate (16) Muscle Relaxant: Succinylcholine (120) and Rocuronium (5) Ancillary Medications Anti-emetics: Zofran - Pre ECT Miscillaneous Medications: Propofol and Midazolam Airway Management Airway Management: LMA Treatment Recommendations No Changes Recommended: No change Notes: did better post op monitor respnse to tx inc succ 140 mg next tx Pt Tolerated Procedure w/o Issue: Yes
== END 2022-02-26 08:36 | disposition home or self-care (01) ==
PROVIDERS: PCP Family Medicine; Visit Provider Psychiatry & Neurology Psychiatry
PROC: (CPT 90870; principal; 2022-02-26 07:00)
DX: F33.2 Major depressive disorder, recurrent severe without psychotic features (principal); E11.22 Type 2 diabetes mellitus with diabetic chronic kidney disease; N18.9 Chronic kidney disease, unspecified; I12.9 Hypertensive chronic kidney disease with stage 1 through stage 4 chronic kidney disease, or unspecified chronic kidney disease; Z79.4 Long term (current) use of insulin; Z20.822 Contact with and (suspected) exposure to COVID-19
CPT/HCPCS: 87635; 90870; J0330; J1885; J2250; J2405

== ENCOUNTER 2022-02-28 05:56 | Day surgery (SDC) | payer OTHER, SELFPAY ==
[2022-02-28 06:28] VITALS: BP 154/93; PULSE 72; RESP 16; TEMP 36.2; O2SAT 95; BMI 44.8
[2022-02-28 06:34] LABS: COVID-19 Test Negative (Negative); IDNOW Serial# 16C4AD1C
--- NOTE | 2022-02-28 06:55 | P.CONAN_ITS ---
[facility] Active Problems Active Problems: All Active Problems (Updated 02/16/22 @ 13:57 by Yessica Negron RN) Diabetes type 2, uncontrolled (Acute) Bipolar disorder with severe depression (Acute) Hypertension (Acute) Bipolar affective, mixed, severe (Acute) Past Medical History Medical History Bipolar affective, mixed, severe Carpal tunnel syndrome Chronic serous OM (otitis media) Diabetic renal disease GERD (gastroesophageal reflux disease) Hyperhidrosis Hypersomnia with sleep apnea Hypertension Lyme disease Migraine without aura Morbid obesity Panic disorder without agoraphobia Recurrent major depressive episodes, moderate Sciatica Temporomandibular joint disorder Family History Family history of problems with anesthesia: No Surgical History History of Problems with Anesthesia: No Social History Social History Patient Tobacco Use Status: Tobacco use Unknown Advance Directives: No Advance Directives Information Provided: Yes Meds Allergies Allergy/AdvReac Type Severity Reaction Status Date / Time amoxicillin [AMOXICILLIN] Allergy Unknown RASH Unverified 11/26/19 18:03 clindamycin [CLINDAMYCIN] Allergy Unknown VIOLENT Unverified 11/26/19 18:03 HEARTBURN clavulanic acid Allergy Rash Verified 02/16/22 13:52 [From Augmentin] divalproex sodium Allergy Rash Verified 02/16/22 13:52 [From Depakote] duloxetine Allergy light Verified 02/16/22 13:52 headed lurasidone [From Latuda] Allergy Mod-severe Verified 02/16/22 13:52 blood sugar spikes metformin Allergy headache, Verified 02/16/22 13:52 diarhhea metoclopramide AdvReac Nausea Verified 02/16/22 13:52 risperidone AdvReac groggy, Verified 02/16/22 13:52 unable to function simvastatin AdvReac Nausea and Verified 02/16/22 13:52 Vomiting Active Medications: Current Medications Lactated Ringer's (Lr) 1,000 mls @ 50 mls/hr IVCONT .Q20H YEIMI Home Medications Medication Instructions Recorded Confirmed Last Taken Type fluticasone propionate 50 2 spray intranasal DAILY 02/16/22 02/16/22 Unknown History mcg/actuation nasal spray,suspension glipizide 10 mg tablet, extended 1 tab PO BID 02/16/22 02/16/22 Unknown History release 24 hr ketoconazole 2 % shampoo topical 02/16/22 Unknown History lorazepam 1 mg tablet 1 tab PO BID PRN Anxiety 02/16/22 02/16/22 Unknown History losartan 100 1 tab PO QAM 02/16/22 02/16/22 Unknown History mg-hydrochlorothiazide 12.5 mg tablet trazodone 100 mg tablet 1 tab PO BEDTIME 02/16/22 02/16/22 Unknown History Exam Exam Date and Time: February 28, 2022 0655 Height,Weight and Vital Signs: Height 5 ft 8 in Weight 133.81 kg Last Vital Signs Temp 97.2 F 02/28/22 06:28 Pulse 72 02/28/22 06:28 Resp 16 02/28/22 06:28 BP 154/93 H 02/28/22 06:28 Pulse Ox 95 02/28/22 06:28 O2 Del Method 02/28/22 06:28 Pertinent Lab Results Pertinent Lab Results: Laboratory Tests 02/28/22 06:13 COVID-19 (GENESIS) Negative COVID-19 Clin Com See Note Airway Mallampati Class: II (Cuellar) TM Dist: >3cm Neck ROM: Full Heart: rrr Lungs: cta Assessment and Plan Assessment Anesthesia Assessment: Anesthesia Plan Discussed and Chart Reviewed Final Anesthetic Review Family History of Problems with Anesthesia: No History of Problems with Anesthesia: No NPO: Yes ASA Class: III Final Preanesthetic Review: No Changes in Pt Med Stat, Meds/Allgs Chart Reviewed and Consent Obtained/Reviewed Patient Risk: Intermediate Procedure Risk: Intermediate Anesthetic Plan Anesthetic Plan: GA Disposition: Standard PACU
--- NOTE | 2022-02-28 07:57 | MHC.SHP ---
Pre-Procedural Eval Section A Date of Service: 02/28/22 The patient is an INPATIENT: No Changes since office visit: Yes Patient answered all questions; No Cold of Flu in the past 2 weeks, No New Medical Problems and No Changes in Medication The History & Physical has been completed within 30 days and I have reviewed it.: Yes Section B Chief Complaint: depression Allergies: Allergies Allergy/AdvReac Type Severity Reaction Status Date / Time amoxicillin [AMOXICILLIN] Allergy Unknown RASH Unverified 11/26/19 18:03 clindamycin [CLINDAMYCIN] Allergy Unknown VIOLENT Unverified 11/26/19 18:03 HEARTBURN clavulanic acid Allergy Rash Verified 02/16/22 13:52 [From Augmentin] divalproex sodium Allergy Rash Verified 02/16/22 13:52 [From Depakote] duloxetine Allergy light Verified 02/16/22 13:52 headed lurasidone [From Latuda] Allergy Mod-severe Verified 02/16/22 13:52 blood sugar spikes metformin Allergy headache, Verified 02/16/22 13:52 diarhhea metoclopramide AdvReac Nausea Verified 02/16/22 13:52 risperidone AdvReac groggy, Verified 02/16/22 13:52 unable to function simvastatin AdvReac Nausea and Verified 02/16/22 13:52 Vomiting Plan I have reviewed the history and physical and performed a pertinent physical examination on my patient. No changes have occurred unless specified. Time Spent With Patient Time: Total time managing care of this patient today ____ minutes.
--- NOTE | 2022-02-28 07:57 | HO.ECTPROC ---
ECT Procedure Note Diagnosis/Treatment Date of Service: 02/28/22 Diagnosis: Major Depressive Disorder Previous ECT Date: 02/23/22 Current Treatment Number: 6 Treatment: Series Interval Clinical Notes: pt perhaps less agitated unclear mood changes did not like how he felt after bf tx has noticed pos changes Time: Total time managing care of this patient today ____ minutes. ECT Settings Device: THYMATRON DGx Electrode Placement: Bitemporal Program/Pulse Width: 0.50 Energy Percent: 100 Seizure Duration By EEG (in seconds): 30 Medications Administration General Anesthetic: Etomidate (16 plus 4) and Propofol (200 mg) Muscle Relaxant: Succinylcholine (140) and Rocuronium (5) Ancillary Medications Analgesics: Torodol - Pre ECT Anti-emetics: Zofran - Pre ECT Miscillaneous Medications: Propofol and Midazolam Airway Management Airway Management: LMA Treatment Recommendations No Changes Recommended: No change Electrode Placement: Bitemporal Notes: required 16 plus 4 etom then propofol 200 mg unclear reasons ? iv rate case reviewed extensively with anesthesia 2 versed post case reviewed with Pt Tolerated Procedure w/o Issue: Yes
[2022-02-28 08:28] VITALS: BP 169/79; PULSE 94; RESP 17; TEMP 37.2; O2SAT 95
[2022-02-28 08:33] VITALS: PULSE 96; RESP 16; O2SAT 92
[2022-02-28 08:38] VITALS: PULSE 93; RESP 18; O2SAT 93
[2022-02-28 08:43] VITALS: PULSE 92; RESP 18; O2SAT 94
[2022-02-28 08:48] VITALS: BP 156/71; PULSE 86; RESP 20; TEMP 37.2; O2SAT 95
== END 2022-02-28 09:15 | disposition home or self-care (01) ==
PROVIDERS: PCP Family Medicine; Visit Provider Psychiatry & Neurology Psychiatry
PROC: (CPT 90870; principal; 2022-02-28 07:00)
DX: F31.4 Bipolar disorder, current episode depressed, severe, without psychotic features (principal); I10 Essential (primary) hypertension; E66.01 Morbid (severe) obesity due to excess calories; Z79.899 Other long term (current) drug therapy; E11.21 Type 2 diabetes mellitus with diabetic nephropathy; Z79.4 Long term (current) use of insulin; Z88.8 Allergy status to other drugs, medicaments and biological substances; Z88.1 Allergy status to other antibiotic agents; Z20.822 Contact with and (suspected) exposure to COVID-19
CPT/HCPCS: 87635; 90870; J0330; J1885; J2250; J2405

== ENCOUNTER 2022-03-02 06:00 | Day surgery (SDC) | payer OTHER, SELFPAY ==
--- NOTE | 2022-03-02 05:34 | MHC.SHP ---
Pre-Procedural Eval Section A Date of Service: 03/02/22 The patient is an INPATIENT: No Changes since office visit: Yes Patient answered all questions; No Cold of Flu in the past 2 weeks, No New Medical Problems and No Changes in Medication The History & Physical has been completed within 30 days and I have reviewed it.: Yes Section B Chief Complaint: depression Allergies: Allergies Allergy/AdvReac Type Severity Reaction Status Date / Time amoxicillin [AMOXICILLIN] Allergy Unknown RASH Unverified 11/26/19 18:03 clindamycin [CLINDAMYCIN] Allergy Unknown VIOLENT Unverified 11/26/19 18:03 HEARTBURN clavulanic acid Allergy Rash Verified 02/16/22 13:52 [From Augmentin] divalproex sodium Allergy Rash Verified 02/16/22 13:52 [From Depakote] duloxetine Allergy light Verified 02/16/22 13:52 headed lurasidone [From Latuda] Allergy Mod-severe Verified 02/16/22 13:52 blood sugar spikes metformin Allergy headache, Verified 02/16/22 13:52 diarhhea metoclopramide AdvReac Nausea Verified 02/16/22 13:52 risperidone AdvReac groggy, Verified 02/16/22 13:52 unable to function simvastatin AdvReac Nausea and Verified 02/16/22 13:52 Vomiting Plan I have reviewed the history and physical and performed a pertinent physical examination on my patient. No changes have occurred unless specified. Time Spent With Patient Time: Total time managing care of this patient today ____ minutes.
[2022-03-02 06:37] LABS: COVID-19 Test Negative (Negative); IDNOW Serial# 16C4AD1C
[2022-03-02 06:40] VITALS: BP 148/81; PULSE 76; RESP 14; TEMP 36.6; O2SAT 95
--- NOTE | 2022-03-02 07:04 | HO.ANESPROP2 ---
[facility] Active Problems Active Problems: All Active Problems (Updated 02/16/22 @ 13:57 by Yessica Negron RN) Diabetes type 2, uncontrolled (Acute) Bipolar disorder with severe depression (Acute) Hypertension (Acute) Bipolar affective, mixed, severe (Acute) Past Medical History Medical History Bipolar affective, mixed, severe Carpal tunnel syndrome Chronic serous OM (otitis media) Diabetic renal disease GERD (gastroesophageal reflux disease) Hyperhidrosis Hypersomnia with sleep apnea Hypertension Lyme disease Migraine without aura Morbid obesity Panic disorder without agoraphobia Recurrent major depressive episodes, moderate Sciatica Temporomandibular joint disorder Family History Family history of problems with anesthesia: No Surgical History History of Problems with Anesthesia: No Social History Social History Patient Tobacco Use Status: Tobacco use Unknown Advance Directives: No Advance Directives Information Provided: Yes Meds Allergies Allergy/AdvReac Type Severity Reaction Status Date / Time amoxicillin [AMOXICILLIN] Allergy Unknown RASH Unverified 11/26/19 18:03 clindamycin [CLINDAMYCIN] Allergy Unknown VIOLENT Unverified 11/26/19 18:03 HEARTBURN clavulanic acid Allergy Rash Verified 02/16/22 13:52 [From Augmentin] divalproex sodium Allergy Rash Verified 02/16/22 13:52 [From Depakote] duloxetine Allergy light Verified 02/16/22 13:52 headed lurasidone [From Latuda] Allergy Mod-severe Verified 02/16/22 13:52 blood sugar spikes metformin Allergy headache, Verified 02/16/22 13:52 diarhhea metoclopramide AdvReac Nausea Verified 02/16/22 13:52 risperidone AdvReac groggy, Verified 02/16/22 13:52 unable to function simvastatin AdvReac Nausea and Verified 02/16/22 13:52 Vomiting Active Medications: Current Medications Lactated Ringer's (Lr) 1,000 mls @ 50 mls/hr IVCONT .Q20H YEIMI Home Medications Medication Instructions Recorded Confirmed Last Taken Type fluticasone propionate 50 2 spray intranasal DAILY 02/16/22 02/16/22 Unknown History mcg/actuation nasal spray,suspension glipizide 10 mg tablet, extended 1 tab PO BID 02/16/22 02/16/22 Unknown History release 24 hr ketoconazole 2 % shampoo topical 02/16/22 Unknown History lorazepam 1 mg tablet 1 tab PO BID PRN Anxiety 02/16/22 02/16/22 Unknown History losartan 100 1 tab PO QAM 02/16/22 02/16/22 Unknown History mg-hydrochlorothiazide 12.5 mg tablet trazodone 100 mg tablet 1 tab PO BEDTIME 02/16/22 02/16/22 Unknown History Exam Exam Date and Time: March 02, 2022 0704 Height,Weight and Vital Signs: Last Vital Signs Temp 97.9 F 03/02/22 06:40 Pulse 76 03/02/22 06:40 Resp 14 03/02/22 06:40 BP 148/81 H 03/02/22 06:40 Pulse Ox 95 03/02/22 06:40 O2 Del Method 03/02/22 06:40 Pertinent Lab Results Pertinent Lab Results: Laboratory Tests 03/02/22 06:16 COVID-19 (GENESIS) Negative COVID-19 Clin Com See Note Airway Mallampati Class: III (Cuellar) TM Dist: >3cm Neck ROM: Full Heart: rrr Lungs: cta Assessment and Plan Assessment Anesthesia Assessment: Anesthesia Plan Discussed and Chart Reviewed Final Anesthetic Review Family History of Problems with Anesthesia: No History of Problems with Anesthesia: No NPO: Yes ASA Class: III Final Preanesthetic Review: No Changes in Pt Med Stat, Meds/Allgs Chart Reviewed and Consent Obtained/Reviewed Patient Risk: Intermediate Procedure Risk: Intermediate Anesthetic Plan Anesthetic Plan: GA Disposition: Standard PACU
[2022-03-02 08:28] VITALS: BP 146/85; PULSE 92; RESP 16; TEMP 37.2; O2SAT 96
[2022-03-02 08:33] VITALS: PULSE 88; RESP 17
[2022-03-02 08:38] VITALS: PULSE 83; RESP 12
[2022-03-02 08:43] VITALS: PULSE 88; RESP 11
--- NOTE | 2022-03-02 08:44 | HO.ECTPROC ---
ECT Procedure Note Diagnosis/Treatment Date of Service: 03/02/22 Diagnosis: Bipolar disorder Previous ECT Date: 02/28/22 Current Treatment Number: 7 Treatment: Series Interval Clinical Notes: pt tolerated bt ect some improvement noted Time: Total time managing care of this patient today ____ minutes. ECT Settings Device: THYMATRON DGx Electrode Placement: Bitemporal Program/Pulse Width: 0.50 Energy Percent: 100 Seizure Duration By EEG (in seconds): 56 Medications Administration General Anesthetic: Etomidate (20) Muscle Relaxant: Succinylcholine (140) and Rocuronium (5) Ancillary Medications Analgesics: Torodol - Pre ECT Anti-emetics: Zofran - Pre ECT Cardiovascular Medications: Glycopyrrolate (0.4 pre tx) Miscillaneous Medications: Propofol and Midazolam Airway Management Airway Management: LMA Treatment Recommendations No Changes Recommended: No change Notes: Patient did well with etomidate 20 mg and being given as a bolus continue bitemporal ECT re-evaluate after another 2 treatments
[2022-03-02] MEDS: LORazepam 1 MG TABLET PO (08:50)
[2022-03-02 08:58] VITALS: BP 129/108; PULSE 88; RESP 16; TEMP 37.2; O2SAT 94
== END 2022-03-02 09:14 | disposition home or self-care (01) ==
PROVIDERS: PCP Family Medicine; Visit Provider Psychiatry & Neurology Psychiatry
PROC: (CPT 90870; principal; 2022-03-02 07:00)
DX: F33.2 Major depressive disorder, recurrent severe without psychotic features (principal); I10 Essential (primary) hypertension; E11.22 Type 2 diabetes mellitus with diabetic chronic kidney disease; K21.9 Gastro-esophageal reflux disease without esophagitis; A69.20 Lyme disease, unspecified; Z79.899 Other long term (current) drug therapy; Z79.51 Long term (current) use of inhaled steroids; Z79.84 Long term (current) use of oral hypoglycemic drugs; Z88.8 Allergy status to other drugs, medicaments and biological substances; Z20.822 Contact with and (suspected) exposure to COVID-19
CPT/HCPCS: 87635; 90870; J0330; J1885; J2250; J2405

== ENCOUNTER 2022-04-02 06:01 | Day surgery (SDC) | payer OTHER, SELFPAY ==
[2022-04-02] VITALS (8 sets, daily range): BP systolic 139–191; BP diastolic 79–96; PULSE 79–102; RESP 16–20; TEMP 36.8–37.2; O2SAT 90–95; BMI 42.7
[2022-04-02 07:02] LABS: Glucose, Whole Blood 111 mg/dL (60-115)
[2022-04-02 07:25] LABS: IDNOW Serial# 55D5AD1C
[2022-04-02 07:26] LABS: COVID-19 Test Negative (Negative)
--- NOTE | 2022-04-02 07:51 | MHC.SHP ---
Pre-Procedural Eval Section A Date of Service: 04/02/22 The patient is an INPATIENT: No Changes since office visit: No Cold of Flu in the past 2 weeks, No New Medical Problems, No Changes in Medication and No Patient answered all questions The History & Physical has been completed within 30 days and I have reviewed it.: Yes Section B Chief Complaint: depression Allergies: Allergies Allergy/AdvReac Type Severity Reaction Status Date / Time amoxicillin [AMOXICILLIN] Allergy Unknown RASH Unverified 11/26/19 18:03 clindamycin [CLINDAMYCIN] Allergy Unknown VIOLENT Unverified 11/26/19 18:03 HEARTBURN clavulanic acid Allergy Rash Verified 02/16/22 13:52 [From Augmentin] divalproex sodium Allergy Rash Verified 02/16/22 13:52 [From Depakote] duloxetine Allergy light Verified 02/16/22 13:52 headed lurasidone [From Latuda] Allergy Mod-severe Verified 02/16/22 13:52 blood sugar spikes metformin Allergy headache, Verified 02/16/22 13:52 diarhhea metoclopramide AdvReac Nausea Verified 02/16/22 13:52 risperidone AdvReac groggy, Verified 02/16/22 13:52 unable to function simvastatin AdvReac Nausea and Verified 02/16/22 13:52 Vomiting Plan I have reviewed the history and physical and performed a pertinent physical examination on my patient. No changes have occurred unless specified. Time Spent With Patient Time: Total time managing care of this patient today ____ minutes.
--- NOTE | 2022-04-02 08:13 | HO.ECTPROC ---
ECT Procedure Note Diagnosis/Treatment Date of Service: 04/02/22 Diagnosis: Bipolar disorder Previous ECT Date: 03/02/22 Treatment: Maintenance Interval Clinical Notes: The patient reported no new changes on medications, mood remains slightly dysphoric but no safety concerns, Currently on maintenance. No side effects with previous ECT. Time: Total time managing care of this patient today _30___ minutes. ECT Settings Device: THYMATRON DGx Electrode Placement: Bitemporal Program/Pulse Width: 0.50 Energy Percent: 100 Seizure Duration By EEG (in seconds): 105 By Motor Observation (in seconds): 25 Medications Administration General Anesthetic: Etomidate (20) Muscle Relaxant: Succinylcholine (140) and Rocuronium (5) Ancillary Medications Analgesics: Torodol - Pre ECT Anti-emetics: Zofran - Pre ECT Cardiovascular Medications: Glycopyrrolate (0.4 pre ECT) Miscillaneous Medications: Propofol and Midazolam Airway Management Airway Management: LMA Treatment Recommendations No Changes Recommended: No change Notes: Etomidate 20 mg on bolus Pt Tolerated Procedure w/o Issue: Yes
[2022-04-02] MEDS: Ibuprofen 600 MG TABLET PO (09:45)
== END 2022-04-02 10:15 | disposition home or self-care (01) ==
PROVIDERS: PCP Family Medicine; Visit Provider Psychiatry & Neurology Psychiatry
PROC: (CPT 90870; principal; 2022-04-02 07:30)
DX: F31.30 Bipolar disorder, current episode depressed, mild or moderate severity, unspecified (principal); E11.9 Type 2 diabetes mellitus without complications; E78.5 Hyperlipidemia, unspecified; Z79.4 Long term (current) use of insulin; Z79.51 Long term (current) use of inhaled steroids; Z79.899 Other long term (current) drug therapy; Z88.8 Allergy status to other drugs, medicaments and biological substances
CPT/HCPCS: 82947; 87635; 90870; J0330; J2250; J2405

== ENCOUNTER 2022-04-16 05:59 | Day surgery (SDC) | payer OTHER, SELFPAY ==
[2022-04-16] VITALS (7 sets, daily range): BP systolic 114–142; BP diastolic 58–72; PULSE 72–100; RESP 16–22; TEMP 36.6–37.2; O2SAT 94–98; BMI 41.8
[2022-04-16 06:46] LABS: COVID-19 Test Negative (Negative); IDNOW Serial# 16C4AD1C
--- NOTE | 2022-04-16 06:55 | HO.ANESPROP2 ---
[facility] Active Problems Active Problems: All Active Problems (Updated 02/16/22 @ 13:57 by Yessica Negron RN) Diabetes type 2, uncontrolled (Acute) Bipolar disorder with severe depression (Acute) Hypertension (Acute) Bipolar affective, mixed, severe (Acute) Past Medical History Medical History Bipolar affective, mixed, severe Carpal tunnel syndrome Chronic serous OM (otitis media) Diabetic renal disease GERD (gastroesophageal reflux disease) Hyperhidrosis Hypersomnia with sleep apnea Hypertension Lyme disease Migraine without aura Morbid obesity Panic disorder without agoraphobia Recurrent major depressive episodes, moderate Sciatica Temporomandibular joint disorder Family History Family history of problems with anesthesia: No Surgical History History of Problems with Anesthesia: No Social History Social History Patient Tobacco Use Status: Tobacco use Unknown Advance Directives: No Advance Directives Information Provided: Yes Meds Allergies Allergy/AdvReac Type Severity Reaction Status Date / Time amoxicillin [AMOXICILLIN] Allergy Unknown RASH Unverified 11/26/19 18:03 clindamycin [CLINDAMYCIN] Allergy Unknown VIOLENT Unverified 11/26/19 18:03 HEARTBURN clavulanic acid Allergy Rash Verified 02/16/22 13:52 [From Augmentin] divalproex sodium Allergy Rash Verified 02/16/22 13:52 [From Depakote] duloxetine Allergy light Verified 02/16/22 13:52 headed lurasidone [From Latuda] Allergy Mod-severe Verified 02/16/22 13:52 blood sugar spikes metformin Allergy headache, Verified 02/16/22 13:52 diarhhea metoclopramide AdvReac Nausea Verified 02/16/22 13:52 risperidone AdvReac groggy, Verified 02/16/22 13:52 unable to function simvastatin AdvReac Nausea and Verified 02/16/22 13:52 Vomiting Active Medications: Current Medications Lactated Ringer's (Lr) 1,000 mls @ 50 mls/hr IVCONT .Q20H YEIMI Home Medications Medication Instructions Recorded Confirmed Last Taken Type fluticasone propionate 50 2 spray intranasal DAILY 02/16/22 02/16/22 Unknown History mcg/actuation nasal spray,suspension glipizide 10 mg tablet, extended 1 tab PO BID 02/16/22 02/16/22 Unknown History release 24 hr ketoconazole 2 % shampoo topical 02/16/22 Unknown History lorazepam 1 mg tablet 1 tab PO BID PRN Anxiety 02/16/22 02/16/22 Unknown History losartan 100 1 tab PO QAM 02/16/22 02/16/22 Unknown History mg-hydrochlorothiazide 12.5 mg tablet trazodone 100 mg tablet 1 tab PO BEDTIME 02/16/22 02/16/22 Unknown History Exam Exam Date and Time: April 16, 2022 0655 Pertinent Lab Results Pertinent Lab Results: Laboratory Tests 04/16/22 06:19 COVID-19 (GENESIS) Negative COVID-19 Clin Com See Note Airway Mallampati Class: II (Missing teeth) TM Dist: >3cm Neck ROM: Full Heart: rrr Lungs: cta bl Assessment and Plan Assessment Anesthesia Assessment: Anesthesia Plan Discussed and Chart Reviewed Final Anesthetic Review Family History of Problems with Anesthesia: No History of Problems with Anesthesia: No NPO: Yes ASA Class: III Final Preanesthetic Review: No Changes in Pt Med Stat, Meds/Allgs Chart Reviewed and Consent Obtained/Reviewed Patient Risk: Intermediate Procedure Risk: Intermediate Anesthetic Plan Anesthetic Plan: GA Disposition: Standard PACU
--- NOTE | 2022-04-16 07:08 | MHC.SHP ---
Pre-Procedural Eval Section A Date of Service: 04/16/22 The patient is an INPATIENT: No Changes since office visit: No Cold of Flu in the past 2 weeks, No New Medical Problems, No Changes in Medication and No Patient answered all questions The History & Physical has been completed within 30 days and I have reviewed it.: Yes Section B Chief Complaint: depression Details of Present Illness: Hx of bipolar on ECT with fair improvement Relevant Family History (Specify if Yes): No Relevant Social History: None Present Medications: see Short Stay Collaborative assessment Medical History: No relevant PMH Allergies: Allergies Allergy/AdvReac Type Severity Reaction Status Date / Time amoxicillin [AMOXICILLIN] Allergy Unknown RASH Unverified 11/26/19 18:03 clindamycin [CLINDAMYCIN] Allergy Unknown VIOLENT Unverified 11/26/19 18:03 HEARTBURN clavulanic acid Allergy Rash Verified 02/16/22 13:52 [From Augmentin] divalproex sodium Allergy Rash Verified 02/16/22 13:52 [From Depakote] duloxetine Allergy light Verified 02/16/22 13:52 headed lurasidone [From Latuda] Allergy Mod-severe Verified 02/16/22 13:52 blood sugar spikes metformin Allergy headache, Verified 02/16/22 13:52 diarhhea metoclopramide AdvReac Nausea Verified 02/16/22 13:52 risperidone AdvReac groggy, Verified 02/16/22 13:52 unable to function simvastatin AdvReac Nausea and Verified 02/16/22 13:52 Vomiting Review of Systems Sugical H&P ROS: Negative: Constitution, Cardiovascular, Respiratory, Neurological, Psychiatric, Hem-Onc, Allergic/Immunologic, Gastrointestinal, Genitourinary, Musculoskeletal, Integumentary, Endocrine and Eyes/Ears/Nose/Throat Exam Surgical H&P Exam: Normal: HEENT, Normal: Heart, Normal: Lungs, Normal: Extremities, Normal: Abdomen, Normal: Skin and Normal: Neurological Plan Diagnosis/Plan: Unchanged I have reviewed the history and physical and performed a pertinent physical examination on my patient. No changes have occurred unless specified. Time Spent With Patient Time: Total time managing care of this patient today _15___ minutes.
--- NOTE | 2022-04-16 07:09 | HO.ECTPROC ---
ECT Procedure Note Diagnosis/Treatment Date of Service: 04/16/22 Diagnosis: Bipolar disorder Previous ECT Date: 04/02/22 Treatment: Maintenance Interval Clinical Notes: The patient reported several psychosocial stressors, dysphoric but safe in the community. Anxious before the procedure. Time: Total time managing care of this patient today _30___ minutes. ECT Settings Device: THYMATRON DGx Electrode Placement: Bitemporal Program/Pulse Width: 0.50 Energy Percent: 100 Seizure Duration By EEG (in seconds): 60 By Motor Observation (in seconds): 53 Medications Administration General Anesthetic: Etomidate (20) Muscle Relaxant: Succinylcholine (140) and Rocuronium (5) Ancillary Medications Analgesics: Torodol - Pre ECT Anti-emetics: Zofran - Pre ECT Airway Management Airway Management: LMA Treatment Recommendations No Changes Recommended: No change Pt Tolerated Procedure w/o Issue: Yes
== END 2022-04-16 09:39 | disposition home or self-care (01) ==
PROVIDERS: PCP Family Medicine; Visit Provider Psychiatry & Neurology Psychiatry
PROC: (CPT 90870; principal; 2022-04-16 07:30)
DX: F31.64 Bipolar disorder, current episode mixed, severe, with psychotic features (principal); I10 Essential (primary) hypertension; E11.9 Type 2 diabetes mellitus without complications; Z79.4 Long term (current) use of insulin; Z88.1 Allergy status to other antibiotic agents; Z88.0 Allergy status to penicillin; Z88.8 Allergy status to other drugs, medicaments and biological substances; Z20.822 Contact with and (suspected) exposure to COVID-19
CPT/HCPCS: 87635; 90870; J0330; J1885; J2250; J2405